=== PATIENT | male | born 1980 | race Caucasian/White ===

== ENCOUNTER 2018-10-28 11:03 | Emergency (ER) | payer SELFPAY ==
[2018-10-28] MEDS ORDERED: Ibuprofen 800 MG TAB ONE (11:31)
--- NOTE | 2018-10-28 14:02 | RAD ---
FRONTAL AND LATERAL IMAGING OF THE LEFT TIBIA AND FIBULA: DATE: 10/28/2018. COMPARISON: None. HISTORY: Injury, trauma, pain. FINDINGS: There is enthesophyte formation at the origin of the plantar aponeurosis. There is no displaced frac ture or evidence of dislocation seen. IMPRESSION: No acute osseous abnormality. POS: [facility]
--- NOTE | 2018-10-28 14:03 | RAD ---
FOUR VIEWS OF THE LEFT KNEE: DATE: 10/28/2018. COMPARISON: None. HISTORY: Injury, trauma, pain. FINDINGS: There is no displaced fracture or evidence of dislocation. No knee joint effusion. IMPRESSION: No acute findings. POS: [facility]
== END 2018-10-28 11:44 | disposition home or self-care (01) ==
LOC: SCSER 11:03
DX: S80.02XA Contusion of left knee, initial encounter (principal); V03.10XA Pedestrian on foot injured in collision with car, pick-up truck or van in traffic accident, initial encounter

== ENCOUNTER 2018-11-04 06:34 | Emergency (ER) | payer SELFPAY | END 2018-11-04 07:40 | disposition home or self-care (01) | LOC: SCSER 06:34 | DX: S86.912A Strain of unspecified muscle(s) and tendon(s) at lower leg level, left leg, initial encounter (principal); F17.290 Nicotine dependence, other tobacco product, uncomplicated; W01.0XXA Fall on same level from slipping, tripping and stumbling without subsequent striking against object, initial encounter | CPT/HCPCS: 99283 ==

== ENCOUNTER 2018-11-19 10:47 | Emergency (ER) | payer OTHER, SELFPAY ==
--- NOTE | 2018-11-19 12:06 | RAD ---
4 VIEW LEFT ELBOW SERIES: Date: 11/19/18 INDICATION: Injury with pain. FINDINGS: There is no evidence of fracture or significant arthropathy. No joint capsular distention. IMPRESSION: No acute osseous abnormality of left elbow. POS: [facility]
== END 2018-11-19 12:25 | disposition home or self-care (01) ==
LOC: SCSER 10:47
DX: S56.212A Strain of other flexor muscle, fascia and tendon at forearm level, left arm, initial encounter (principal); F17.210 Nicotine dependence, cigarettes, uncomplicated; X50.9XXA Other and unspecified overexertion or strenuous movements or postures, initial encounter
CPT/HCPCS: 99406